=== PATIENT | female | born 1955 | race Hispanic/Latino ===

== ENCOUNTER 2018-06-22 09:43 | Inpatient (IN) | payer OTHER | END 2018-06-23 13:00 | disposition home or self-care (01) | LOC: DAHIP 09:43 → 2AH 16:25 ==

== ENCOUNTER → 2018-10-08 | Outpatient (CLI) | payer OTHER ==
[~2018-10-08] MED LIST: AEC81 PO; ALBU90AE IH; CALC-1153 PO; CLOP75TA14 PO; FLUT1AER IH; FOLI1TAB15 PO; IOHEXOL 350 MG/ML 100ML INFUS..BTL IV ONE; LORA10TA7 PO; METH2.5T6 PO; METO-408 PO; MONT10TA24 PO; PRED5TAB PO; SULF500T8 PO
== END | disposition home or self-care (01) ==
LOC: RAH 08:41
PROVIDERS: ATTEND Internal Medicine Cardiovascular Disease
DX: I72.2 Aneurysm of renal artery (principal)
CPT/HCPCS: 74175; Q9967; 74174

== ENCOUNTER → 2020-01-14 | Outpatient (CLI) | payer OTHER ==
[~2020-01-14] MED LIST changes: -IOHEXOL 350 MG/ML 100ML INFUS..BTL IV ONE; -MONT10TA24 PO; +MONT10TA26 PO
== END | disposition home or self-care (01) ==
LOC: SHCH 07:35
PROVIDERS: ATTEND Internal Medicine Cardiovascular Disease
DX: I15.0 Renovascular hypertension (principal)
CPT/HCPCS: 93975

== ENCOUNTER → 2021-09-20 | Outpatient (CLI) | payer OTHER ==
[~2021-09-20] MED LIST changes: +MONT-39 PO; -MONT10TA26 PO
== END | disposition home or self-care (01) ==
LOC: SHCH 07:31
PROVIDERS: ATTEND Internal Medicine Cardiovascular Disease
DX: I34.0 Nonrheumatic mitral (valve) insufficiency (principal); I11.9 Hypertensive heart disease without heart failure; J45.909 Unspecified asthma, uncomplicated; M06.9 Rheumatoid arthritis, unspecified; Z95.828 Presence of other vascular implants and grafts
CPT/HCPCS: 93306; 93975